=== PATIENT | female | born 2005 | race Caucasian/White ===

== ENCOUNTER 2025-02-17 18:40 | Emergency (ER) | payer BC, SELFPAY ==
--- OUTSIDE RECORDS SUMMARY | 2025-01-31 23:59 | XMS_ITS | Continuity of Care Document ---
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) - 01/31/25 Discharge Disposition: Home/Self Care Attending Physician: Nanda Nguyễn PA-C Admitting Physician: Nanda Nguyễn PA-C Encounter Type: Telemedicine Allergies, Adverse Reactions, Alerts No Known Medication Allergies Immunizations Given and Recorded Vaccine Date Status Refusal Reason .diphtheria-pertussis,acel-tetanus adult 11/21/22 Given COVID-19 Vaccine - BioNTech/Pfizer 01/26/21 Given COVID-19 Vaccine - BioNTech/Pfizer 01/05/21 Given .influenza vaccine, inactive, quadvlnt 01/06/14 Gi beverley .influenza virus vaccine, live, trivalnt 11/20/10 Given .poliovirus vaccine, inactivated 11/20/10 Given .poliovirus vaccine, inactivated 02/20/06 Given .poliovirus vaccine, inactivated 05 Given .poliovirus vaccine, inactivated 05 Given .utpuahx-homcb-hxvhdcu virus vaccine 11/20/10 Give n .hahulpb-vdewk-khsdmto virus vaccine 05/14/06 Give n .varicella virus vaccine 11/20/10 Given .varicella virus vaccine 05/14/06 Given .diphtheria-pertussis, acel-tetanus ped 11/20/10 G iven .diphtheria-pertussis, acel-tetanus ped 05 G iven .diphtheria-pertussis, acel-tetanus ped 05 G iven .diphtheria-pertussis, acel-tetanus ped 05 G iven sqwgxqagft-cgfruzf-bkczojmtf,acel-tetan 11/18/06 G iven .pneumococcal 7-valent vaccine 11/18/06 Given .pneumococcal 7-valent vaccine 05 Given .pneumococcal 7-valent vaccine 05 Given .pneumococcal 7-valent vaccine 05 Given .haemophilus B-hepatitis B vaccine 05 Given .haemophilus B-hepatitis B vaccine 05 Given Medications busPIRone 5 mg oral tablet 0 Refill(s), Acute = falls off med list w/stop date Start Date: 01/31/25 Status: Ordered Repeat number: 1 CeleBREX 200 mg oral capsule 200 mg = 1 CAP PO BID, Take BID for 7-14 days post tonsillectomy, # 60 CAP, 0 Refill(s), Maintenance = stays on med list, Pharmacy: [facility] Start Date: 01/31/25 Status: Ordered Quantity: 60.0 Unit: CAP Repeat number: 1 tranexamic acid 650 mg oral tablet See Instructions, 2 TABLET PO TID as needed - Please take for 14 days following your wisdom teeth extraction, # 50 EACH, 1 Refill(s), Maintenance = stays on med list, Pharmacy: [facility] Start Date: 01/31/25 Status: Ordered Quantity: 50.0 Unit: EACH Repeat number: 2 Problem List Condition Confirmation Course Effective Dates Status Health Status Informant Acne Confirmed Active Dysfibrinogenemia Confirmed Active Dysmenorrhea Confirmed Active 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 (01/31/25 9:10 AM) Concerns about Pain No (01/31/25 9:10 AM) Height Method Estimated (01/31/25 9:10 AM) Weight 63.0 kg (01/31/25 9:10 AM) Social History Social History Type Response Sex Female Sex Representation Female (finding) Patient Care team information Personnel Name: Victoria Amado Address: [address] [address] Telecom: Insurance Providers Guarantor name: POLO Health Plan Information #: 1 Payer: [facility] Non [place] - B03 Member Number: [id number] Policy Number: POLO Group Number: [id number] Payer Identifier: POLO Health Plan Information #: 2 Payer: [employer] Non [place] - B03 Member Number: [id number] Policy Number: POLO Group Number: [id number] Payer Identifier: POLO
--- OUTSIDE RECORDS SUMMARY | 2025-02-15 08:45 | XMS_ITS ---
Author Organization [facility] Address [address] [place] [address] Care Team Providers Care Director Of Labor Relations Name Role Phone None, None Primary Care Provider LAW Rosario [phone] REASON FOR VISIT RSC/TONSILLECTOMY Medications Medication SIG (Take, Route, Frequency, Duration) Notes Start Date End Date Status oxyCODONE HCl 5 MG Tablet 1 tablet as ne eded for pain Orally every 4 hrs; Duration: 7 days 02/15/2025 02/22/2025 Active Spironolactone Activ e Encounters Encounter Location Date Provider Diagnosis [address] [place], [place] [id number] 02/15/2025 LAW BROOKE Plan Of Treatment Medication Medication Name Sig Start Date Stop Date Notes oxyCODONE HCl 5 MG Tablet 1 tablet as ne eded for pain Orally every 4 hrs; Duration: 7 days 02/15/2025 02/22/2025 Progress Notes * Keri HARRISON MDOB: 6 (19 yo F)Acc No.[id number]:02/15/2025 Patient: Viktor espinal Keri De La Fuente Provider: Joby Brooke :2005 A ge:19 Y S ex:Female Date:02/15/2025 Address: [facility] Subjective: * Chief Complaints: * 1 . RSC/TONSILLECTOMY. * Surgical History: * Hospitalization/Major Diagno stic Procedure: * Medications: T aking Spironolactone Plan: * Treatment: * PACKER Sign off status: Completed true * Provider: Joby Brooke Date: 04/17/2024 Generated for Joselyn holcomb/Adrien/Mark on: 04/19/2024 07:26 PM HAND PACKER
[2025-02-17 18:44] VITALS: BP 110/73; PULSE 91; RESP 18; TEMP 37.3; O2SAT 98
--- NOTE | 2025-02-17 18:57 | ED.GENADULT ---
HPI - General Adult General Time Seen by Provider: 18:58 Date Seen: 02/17/25 Chief complaint: Ear/Nose/Throat Problem Stated complaint: Tonsillectomy Thursday; cough, sore throat Time Seen by Provider: 02/17/25 18:48 Source: patient Mode of arrival: ambulatory Limitations: no limitations History of Present Illness HPI narrative: 19-year-old female who presents today with cough and throat pain after tonsillectomy 2 days ago. Patient notes she has had a runny nose and cough, postnasal drainage, coughing source of her worse. She has not been able to take her medications including oxycodone and TXA due to pain, also is not eating or drinking well. No bleeding. Related Data Home Medications ?Medication ?Instructions ?Recorded ?Confirmed buspirone 5 mg tablet 5 mg PO BID PRN 02/17/25 02/17/25 celecoxib .ROUTE BID 02/17/25 spironolactone 100 mg tablet 200 mg PO DAILY 02/17/25 02/17/25 (Aldactone) tranexamic acid 650 mg tablet 1,300 mg PO TID 02/17/25 02/17/25 Previous Rx's ?Medication ?Instructions ?Recorded oxycodone 5 mg/5 mL oral solution 5 mg (5 mL) PO Q6H PRN pain #50 mL 02/17/25 Allergies Allergy/AdvReac Type Severity Reaction Status Date / Time NSAIDS (Non-Steroidal Allergy Severe Verified 02/17/25 18:56 Anti-Inflamma Exam Narrative: Exam Narrative: General: Well-developed and well-nourished, no acute distress Head: Atraumatic and normocephalic Eyes: Pupils are equal reactive, extraocular motions intact, conjunctiva clear ENT: Usual postoperative tonsillectomy changes, uvula is quite edematous and touching the tongue Neck: No midline cervical tenderness, full spontaneous range of motion the neck, trachea midline, no adenopathy Heart: Regular rate and rhythm no murmurs or thrills Lungs: Clear to auscultation bilaterally without wheezes or crackles Abdomen: Soft, nontender, nondistended with active bowel sounds Musculoskeletal: No tenderness, deformity, or edema Neurologic: Awake, alert, and oriented x3, no gross focal neurologic deficits, cranial nerves intact as tested Psych: Mood and affect are appropriate Skin: No rashes Const: Vital Signs, click to edit/add: Vital Signs - 24 hr 02/17/25 18:44 Temperature 99.1 F Pulse Rate [Right Pulse Oximeter] 91 Respiratory Rate 18 Blood Pressure [Ri ght Upper Arm] 110/73 Pulse Oximetry 98 Oxygen Delivery Me thod Room Air Course Course ED Course: Additional records reviewed: Hematology visit from January 31 which was follow-up for hypofibrinogenemia Additional history from: [facility] Care impacted by: bleeding disorder/hypofirbinogenemia Testing considered but not performed: See ED course Patient presents with nasal congestion, cough, throat pain after tonsillectomy 2 days ago. No shortness of breath, mild chest pain when she coughs. Patient is on TXA postoperatively for 2 weeks but has not been able to take this, also not able to drink much or take her pain pills. On exam here vital is stable, expected postoperative changes of the posterior oropharynx but the uvula is quite edematous, not erythematous and no exudate. IV will be placed, fluids and TXA given, epinephrine nebulizer given and dexamethasone. Reevaluation(s) Time of Reevaluation #1: 20:17 Reevaluation #1: Patient recheck, still having quite a bit of pain, generalized symptoms are not much improved. Additional Dilaudid is given, posterior pharynx reexamined in no change. Patient is still able to swallow secretions. Time of Reevaluation #2: 21:57 Reevaluation #2: Patient recheck, she is feeling much better. Plan discharge, additional dose pain medication will be given prior. Vital Signs Vital signs: Initial Vital Signs Temperature 99.1 F 02/17/25 18:44 Temperature Source Temporal Artery Scan 02/17/25 18:44 Pulse Rate 91 02/17/25 18:44 Pulse Rhythm Regular 02/17/25 18:44 Pulse Strength 3+ Normal 02/17/25 18:44 Respiratory Rate 18 02/17/25 18:44 Blood Pressure 110/73 02/17/25 18:44 Blood Pressure Mean 85 02/17/25 18:44 Blood Pressure Position Sitting 02/17/25 18:44 Pulse Oximetry 98 02/17/25 18:44 Oxygen Delivery Method Room Air 02/17/25 18:44 Vital Signs Temperature 99.1 F 02/17/25 18:44 Pulse Rate 91 02/17/25 18:44 Respiratory Rate 18 02/17/25 18:44 Blood Pressure 110/73 02/17/25 18:44 Pulse Oximetry 98 02/17/25 18:44 Oxygen Delivery Method Room Air 02/17/25 18:44 Temperature 99.1 F 02/17/25 18:44 Pulse Rate 91 02/17/25 18:44 Respiratory Rate 18 02/17/25 18:44 Blood Pressure 110/73 02/17/25 18:44 Pulse Oximetry 98 02/17/25 18:44 Oxygen Delivery Method Room Air 02/17/25 18:44 Medications Administered Medications: Generic Name Dose Route Start Last Admin Trade Name Freq PRN Reason Stop Dose Admin Dexamethasone 10 mg 02/17/25 19:19 02/17/25 19:48 Dexamethasone 10 Mg/Ml Pf IVP 02/17/25 19:20 10 mg ONCE ONE Administration Epinephrine 0.5 ml 02/17/25 19:19 02/17/25 19:27 Racepinephrine Hcl 0.5 Ml Vial.Neb NEB 02/17/25 19:20 0.5 ml ONCE ONE Administration Hydromorphone HCl 0.5 mg 02/17/25 19:19 02/17/25 19:42 Hydromorphone 0.5 Mg/0.5 Ml Inj IVP 02/17/25 19:20 0.5 mg ONCE ONE Administration Hydromorphone HCl 0.5 mg 02/17/25 20:17 02/17/25 20:26 Hydromorphone 0.5 Mg/0.5 Ml Inj IVP 02/17/25 20:18 0.5 mg ONCE ONE Administration Sodium Chloride 1,000 mls @ 1,000 mls/hr 02/17/25 19:30 02/17/25 21:25 0.9 % Sodium Chloride 1000 Ml IV 02/17/25 20:29 Infused .Q1H SHIRA Infusion Tranexamic Acid 1,000 mg/ 110 mls @ 440 mls/hr 02/17/25 19:19 02/17/25 20:23 Sodium Chloride IVPB 02/17/25 19:20 Infused ONCE ONE Infusion Ondansetron HCl 4 mg 02/17/25 19:19 02/17/25 19:45 Ondansetron 2 Mg/Ml Inj IVP 02/17/25 19:20 4 mg ONCE ONE Administration Oxycodone HCl 5 mg 02/17/25 21:57 02/17/25 22:14 Oxycodone 1 Mg/Ml Oral Soln PO 02/17/25 21:58 5 mg ONCE ONE Administration Discharge Plan Discharge Clinical Impression: Post-operative pain, Hypofibrinogenemia Patient Disposition: Home w/ Parent or Adult Condition: Stable Instructions: Opioid Safety (ED), Pain Management After Surgery (DC) Activity Level: Activity as Tolerated Discharge Diet: Full Liquid Prescriptions: New oxycodone 5 mg/5 mL solution 5 mg PO Q6H PRN (Reason: pain) Qty: 50 0RF No Action spironolactone [Aldactone] 100 mg tablet 200 mg PO DAILY buspirone 5 mg tablet 5 mg PO BID PRN tranexamic acid 650 mg tablet 1,300 mg PO TID celecoxib .ROUTE BID Stand Alone Forms: [facility]
--- OUTSIDE RECORDS SUMMARY | 2025-02-17 19:26 | XMS_ITS | Patient Health Record ---
Author Organization [facility] Address [address] [place] [address] Care Team Providers Care Director Software Development Name Role Phone None, None Primary Care Provider LAW Rosario Unavailable [phone] Allergies Allergen (clinical drug ingredient) Drug/Non Drug Allergy documented on EMR Reaction Allergy Type Onset Date Status ibuprofen Ibuprofen Unknown Drug Allergy Active Reason For Referral No Information Medications Medication SIG (Take, Route, Frequency, Duration) Notes Start Date End Date Status oxyCODONE HCl 5 MG Tablet 1 tablet as ne eded for pain Orally every 4 hrs; Duration: 7 days 02/15/2025 02/22/2025 Active Spironolactone Activ e Social History Tobacco Use: Social History Observation Description Date Details (start date - stop date) Never Smoker NA - NA Social History Alcohol Use: Social Info Question Answer Notes Recreational drugs Recreational Drug Use: No Drug/Alcohol: Social Info Question Answer Notes AUDIT-C (Standard) Did you have a drink containing alcohol in the past year? No Points 0 Interpretation Negative Tobacco Use: Social Info Question Answer Notes Tobacco Control (Standard) Tobacco use: Nonsmoker Problems Problem Type SNOMED Code ICD Code Onset Dates Problem Status W/U Status Risk Notes Problem Tonsil stone (9126425) Tonsil stone (J35.8) Active confirmed Vital Signs Height-cm 167.64 cm 02/19/2024 Weight-kg 66.22 kg 02/19/2024 BMI Percentile 71.06 % 02/19/2024 Height 66 in 02/19/2024 Weight 146 lbs 02/19/2024 BMI 23.56 kg/m2 02/19/2024 Procedures Procedure Date Ordered Date Performed Result Body Sit e Surgery - Tonsils 02/19/2024 02/15/2025 02/15/25 Encounters Encounter Location Date Provider Diagnosis [facility] [place] [address] [facility] [address] [place] [address] 02/19/2024 LAWRANI BROOKE Recurrent tonsillitis J03.91 and Tonsil stone J35.8 [facility] [address] [address] [place], [place] [id number] 02/15/2025 LAW JAYLYNARAMIS [facility] [address] [place] [address] 11/15/2024 LAWRANI BROOKE Assessments Encounter Date Diagnosis (ICD Code) Assessment Notes Treatment Notes Treatment Clinical Notes Section Notes 02/19/2024 Recurrent tonsillitis (ICD-10 - J03.91) This is an 18-year-old female with recurrent tonsillitis and occasional tonsil stones being evaluated for tonsillectomy. We reviewed the indications for tonsillectomy and she is likely to have had 3 tonsil infections per year for the past 3 years. She also has persistent and irritating tonsil stones bilaterally. The postoperative course and general painful recovery was reviewed with the patient and her father included risks of bleeding, pain, irritation, tonsil regrowth, and general difficult recovery. Additionally, the patient explains that she has a history of clotting factor deficiency and would require preoperative treatment by her cutlet maker pork. We discussed elevated risk of bleeding as a result. She is willing to proceed and we will schedule accordingly. 02/19/2024 Tonsil stone (ICD-10 - J35.8) This is an 18-year-old female with recurrent tonsillitis and occasional tonsil stones being evaluated for tonsillectomy. We reviewed the indications for tonsillectomy and she is likely to have had 3 tonsil infections per year for the past 3 years. She also has persistent and irritating tonsil stones bilaterally. The postoperative course and general painful recovery was reviewed with the patient and her father included risks of bleeding, pain, irritation, tonsil regrowth, and general difficult recovery. Additionally, the patient explains that she has a history of clotting factor deficiency and would require preoperative treatment by her cutlet maker pork. We discussed elevated risk of bleeding as a result. She is willing to proceed and we will schedule accordingly. Plan Of Treatment Pending Test Test Name Order Date Surgery - Tonsils 02/19/2024 Insurance Providers Payer Name Payer Address Payer Phone Subscriber Number Group Number Insured Name Patient Relationship to Insured Coverage Start Date Coverage End Date [facility] [address] [address] [place] [address] [id number] Keri Ramirez Self - patient is the insured Medical (General) History Medical History History ICD Code easy bleeding or bruising problems factor 1 and 7 blood disorders Surgical History Surgery Date(Month/Year) craniosynostosis 2007 Bilateral Tonsillectomy [facility] 02/15/2025 Hospitalization History Reason Date(Month/Year) Same as Surgical history
--- OUTSIDE RECORDS SUMMARY | 2025-02-17 19:26 | XMS_ITS | Encounter Summary ---
Author Organization [place] Address [address] [place] [address] Care Team Providers Care School Age Teacher Name Role Phone Jean Marie Ray MD Primary Care Provider [phone] Kathi Rodriguez APRN RESEARCH AND INSIGHTS EXECUTIVE Unavailable [phone] Kathi Rodriguez APRN RESEARCH AND INSIGHTS EXECUTIVE Unavailable [phone] No Ref-Primary, Physician Primary Care Provider Victoria Restrepo TAG MAKER Unavailable Unavailable [facility] Unavail able [facility] Unavailabl e [facility] Unavail able [facility] Unavailabl e Encounter Details Date Type Department Care Team (Late st Contact Info) Description 10/09/2021 My[facility] Medical Advice [address] [address] Gogo Ramos CMA Social History Tobacco Use Types Packs/Day Years Used Date Smoking Tobacco: Never Smokeless Tobacco: Never Alcohol Use Standard Drinks/Week Comments No 0 (1 standard drink = 0.6 oz pur e alcohol) PHQ-2 Answer Date Recorded PHQ-2 Score 0 03/01/2020 Comments Unknown Sex and Gender Information Value Date Recorded Sex Assigned at Not on file Legal Sex Female 9:10 PM CDT Gender Identity Female 02/29/2020 9:37 PM CUT OFF SAWYER LOG Sexual Orientation Straight 03/12/2021 12 :10 PM CUT OFF SAWYER LOG COVID-19 Exposure Response Date Recorded In the last 10 days, have yo u been in contact with someone who was confirmed or suspected to have Coronavirus/COVID-19? No / Unsure 09/16/2021 12:36 PM CDT documented as of this encounter Plan of Treatment Not on file documented as of this encounter Visit Diagnoses Not on filedocumented in this encounter Additional Health Concerns Infection Onset Date Last Indicated Resolved Time Rule Out COVID-19 11/18/2022 11/18/2022 11/19/2022 10:57 AM CDT documented as of this encounter Care Teams School Age Teacher Relationship Specialty Start Date End Date Jean Marie Ray MD [address] [facility] [address] [place] [address] PCP - General Pediatrics 09/07/13 10/17/22 No Ref-Primary, Physician PCP - General 10/18/22 Kathi Rodriguez APRN RESEARCH AND INSIGHTS EXECUTIVE [address] [place] [phone] Assigned PCP 02/10/20 03/14/22 Kathi Rodriguez APRN RESEARCH AND INSIGHTS EXECUTIVE [address] [place] [phone] Assigned PCP 05/24/22 11/28/22 Victoria Restrepo NP Assigned PCP 11/29/22 07/20/23 [facility] [address] [place] [address] Assigned PCP 07/21/23 03/20/24 [facility] [address] [place] [address] Assigned PCP 03/21/24 06/18/24 [facility] [address] [facility] [place] [address] Assigned PCP 06/19/24 12/19/24 [facility] [address] [place] [address] Assigned PCP 12/20/24 documented as of this encounter
--- OUTSIDE RECORDS SUMMARY | 2025-02-17 19:26 | XMS_ITS | Clinical Summary ---
Author Organization [address] [address] Care Team Providers Care Solid Waste Collection Worker Name Role Phone No Ref-Primary, Physician Primary Care Provider [facility] Allergies Active Allergy Reactions Criticality Noted Date Comments Ibuprofen 01/12/2023 Bad reaction - has a blood disorder Medications spironolactone (ALDACTONE) 100 MG tablet TAKE 1 TABLET BY MOUTH TWICE A DAY X 90 DAYS 2 Active levonorgestrel (MIRENA) 52 MG (20 mcg/day) IUD 1 each 2 Active VITAMIN D3 25 MCG tablet Take 1 tablet by mouth daily at 2 pm. 4 Active VITAMIN D3 25 MCG tablet Take 1 tablet by mouth daily at 2 pm. 4 Active sodium chloride (OCEAN) 0.65 % nasal sprayIndications:U pper respiratory tract infection, unspecified type [place] 2 sprays in nostril 2 times daily as needed for congestion 4 Active ofloxacin (OCUFLOX) 0.3 % ophthalmic solutionIndication s:Contact lens related conjunctivitis Place 1-2 drops into the right eye 4 times daily. 10 mL 5 Active erythromycin (ROMYCIN) 5 MG/GM ophthalmic ointmentIndication s:Contact lens related conjunctivitis Place 0.5 inches into the right eye at bedtime. 3.5 g 1 5 Active Active Problems Problem Noted Date Diagnosed Date Tonsil stone 08/10/2024 Chronic tonsillitis 01/16/2024 Acne 06/22/2022 Dysmenorrhea 06/22/2022 Presence of intrauterine contraceptive device Menorrhagia 06/22/2022 Immunizations Immunization Administration Dates Next Due COVID-19 MONOVALENT 12+ (Pfizer) 01/26/2021,100 11/2020 Comvax (HIB/HepB) 2005,2005 DTAP (<7y) 11/20/2010, 6,2005,06/16 HPV9 (Gardasil) 11/21/2022 Hepatitis A (Vaqta/Havrix)(P eds 12m-18y) 09/01/2007,11/18/2006 Hepatitis B, Peds (Engerix-B/Recombivax HB) 02/20/2006 Influenza (IIV3) PF 02/20/2007,02/20/2006 Influenza (prior to 2023) 02/12/2008 Influenza Intranasal Vaccine 11/20/2010 Influenza Vaccine >6 months,quad, PF 03/03/2022, 05/05/2013 Influenza Vaccine, 6+MO IM (QUADRIVALENT W/PRESERVATIVES) 01/06/2014 MMR (MMRII) 11/20/2010,05/14/2006 Meningococcal ACWY (Menquadf i ) 11/21/2022 Pneumococcal (PCV 7) 11/18/2006,10/15/19 06,2005,06/16 Poliovirus, inactivated (IPV) 11/20/2010 ,02/20/2006,2005,06/16 TDAP (Adacel,Boostrix) 11/21/2022 TRIHIBIT (DTAP/HIB, <7y) 11/18/2006 Varicella (Varivax) 11/20/2010,05/14/2006 Social History Tobacco Use Types Packs/Day Years Used Date Smoking Tobacco: Never Smokeless Tobacco: Never Alcohol Use Standard Drinks/Week Comments No 0 (1 standard drink = 0.6 oz pur e alcohol) PHQ-2 Answer Date Recorded PHQ-2 Score 0 11/21/2022 Hunger Vital Sign Answer Date Recorded Within the past 12 months, y ou worried that your food would run out before you got the money to buy more. Never true 11/22/19 23 Within the past 12 months, t he food you bought just didn't last and you didn't have money to get more. Never true 11/21/2022 PRAPARE - Transportation Answer Date Re corded In the past 12 months, has l ack of transportation kept you from medical appointments or from getting medications? No 11/21/2022 Lack of Transportation (Non-Medical) Not on file 11/21/2022 Housing Stability Vital Sign Answer Tobi e Recorded In the last 12 months, was t here a time when you were not able to pay the mortgage or rent on time? No 11/21/2022 Number of Places Lived in the Last Year Not on f ile 11/21/2022 In the last 12 months, was t here a time when you did not have a steady place to sleep or slept in a group home (including now)? No 11/21/2022 Adolescent Education Answer Date Record ed Getting School Help Needed Not on file 12/19 Comments No Sex and Gender Information Value Date Recorded Sex Assigned at Not on file Legal Sex Female 9:10 PM CDT Gender Identity Female 02/29/2020 9:37 PM [employer] Sexual Orientation Straight 03/12/2021 12 :10 PM [employer] Last Filed Vital Signs Vital Sign Reading Time Taken Comments Blood Pressure 118/72 08/10/2024 12:27 PM CDT Pulse 74 08/10/2024 12:27 PM CDT Temperature 36.8 C (98.2 F) 08/10/2024 12:27 PM CDT Respiratory Rate 14 08/10/2024 12:27 PM CDT Oxygen Saturation 99% 08/10/2024 12:27 PM CDT Inhaled Oxygen Concentration - - Weight 68.5 kg (151 lb) 08/10/2024 12:27 PM CDT Height 167.6 cm (5' 6) 08/10/2024 12:27 PM CDT Body Mass Index 24.37 08/10/2024 12:27 PM CDT Plan of Treatment Health Maintenance Due Date Last Done Comments ADVANCE CARE PLANNING 2005 ANNUAL REVIEW OF HM ORDERS 2005 HIV SCREENING 2020 MENINGITIS B VACCINE (1 of 2 - Standard) 2021 HPV VACCINE (2 - 3-dose series) 12/19/2022 11/21/2022 HEPATITIS C SCREENING 2023 YEARLY PREVENTIVE VISIT 11/22/2023 11/21/2022 CHLAMYDIA SCREENING 03/09/2024 03/09/2023, 3 PHQ-2 (once per calendar year) 2024 11/21/2022, 08/20/2022, 03/03/2022, Additional history exists COVID-19 VACCINE (3 - season) 2024 01/26/2021, 01/05/2021 INFLUENZA VACCINE (#1) 2024 , 01/06/2014, 05/05/2013, Additional history exists DTAP/TDAP/TD VACCINE (7 - Td or Tdap) 11/21/2032 11/21/2022, 11/20/2010, 11/18/2006, Additional history exists ZOSTER VACCINE (1 of 2) 2055 HEPATITIS B VACCINE Completed 02/20/2006, 2005, 2005 HIB VACCINE Completed 11/18/2006, 07/28, 2005 PNEUMOCOCCAL VACCINE: PEDIATRICS (0 to 5 YEARS) AND AT-RISK PATIENTS (6 to 49 YEARS) Aged Out 11/18/2006, 2005, 2005, Additional history exists No longer eligible based on patient's age to complete this topic IPV VACCINE Completed 11/20/2010, 01/29, 2005, Additional history exists VARICELLA VACCINE Completed 11/20/2010, 05/14/2006 MENINGITIS VACCINE Completed 11/21/2022 Procedures Procedure Name Priority Date/Time Associated Diagnosis Comments CHLAMYDIA TRACHOMATIS PCR Routine 03/09/2023 12:58 PM [employer] Chlamydia from Last 3 Months or Most Recently Relevant to Health Maintenance Results * Chlamydia trachomatis PCR (03/09/2023 12:58 PM [employer]) Chlamydia trachomatis Negative Negative 03/10/2023 11:42 AM [employer] [facility] Comment:A negative result by fur sewer mediated amplification does not preclude the presence of C. trachomatis infection because results are dependent on proper and adequate collection, absence of inhibitors and sufficient rRNA to be detected. Swab VAGINAL STRUCTURE / Unknown Non-blood Collection / Unknown 03/09/2023 12:58 PM [employer] 03/09/2023 12:58 PM [employer] Erasmo Yap PA-C LAB - MICRO GENERAL ORDERABL ES Final Result [facility] Inf. Diseases Diag. Lab [address] [place] [address], [facility] [phone] from Last 3 Months or Most Recently Relevant to Health Maintenance [place] Care Teams Solid Waste Collection Worker Relationship Specialty Start Date End Date No Ref-Primary, Physician PCP - General 10/18/22 Clinic - [facility] [[email or web address]] [address] [place] [address] Assigned PCP 12/20/24
--- OUTSIDE RECORDS SUMMARY | 2025-02-17 19:26 | XMS_ITS | Clinical Summary ---
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) Medications No known medications Active Problems Problem Noted Date Diagnosed Date Acne 06/22/2022 Dysmenorrhea 06/22/2022 Menorrhagia 06/22/2022 Presence of intrauterine contraceptive device Resolved Problems Problem Noted Date Diagnosed Date Resolved Date Menorrhagia 08/09/2022 11/10/2023 Family History Relation Name Status Comments Father Alive Mother Alive Social History Tobacco Use Types Packs/Day Years Used Date Smoking Tobacco: Never Passive Smoke Exposure: Never Tobacco Cessation:Counseling Given: Not Answered Alcohol Use Standard Drinks/Week Comments Never 0 (1 standard drink = 0.6 oz pur e alcohol) Social Connections Answer Date Recorded Do you often feel lonely or isolated from those around you? 0 10/30/2023 Financial Resource Strain Answer Date R ecorded Difficulty of Paying Living Expenses 3 11/10/2023 Difficulty of Paying Living Expenses Not on file 11/10/2023 Food Insecurity Answer Date Recorded Do you worry your food will run out before you are able to buy more? 1 10/30/2023 Transportation Needs Answer Date Record ed Does lack of transportation keep you from medica l appointments? 1 10/30/2023 Does lack of transportation keep you from work, meetings or getting things that you need? 1 10/30/2023 Housing Stability Answer Date Recorded What is your housing situation today? 1 10/30/2023 Utilities Answer Date Recorded Do you have trouble paying f or utilities (for example, heat, electricity, water, phone)? 1 10/30/2023 Comments No Sex and Gender Information Value Date Recorded Sex Assigned at Not on file Legal Sex Female 7:13 AM [employer] Gender Identity Not on file Sexual Orientation Not on file Obstetrics History Last Filed Vital Signs Vital Sign Reading Time Taken Comments Blood Pressure 108/60 11/10/2023 12:07 PM CDT Pulse 60 11/10/2023 12:07 PM CDT Temperature 36.7 C (98.1 F) 02/06/2023 7:26 PM [employer] HEL[employer] Respiratory Rate 12 02/06/2023 7:26 PM BOAT JOINER HELPER Oxygen Saturation 99% 02/06/2023 7:26 PM BOAT JOINER HELPER Inhaled Oxygen Concentration - - Weight 61.2 kg (135 lb) 02/06/2023 7:26 PM BOAT JOINER HELPER Height 167.6 cm (5' 6) 02/06/2023 7:26 PM [employer]AT [employer]ER HELPER Body Mass Index 21.79 02/06/2023 7:26 PM BOAT JOINER HELPER Body Mass Index Percentile 57.14% 02/06/2023 7:2 6 PM BOAT JOINER HELPER Growth Chart: CDC (Girls, 2- 20 Years) Plan of Treatment Health Maintenance Due Date Last Done Comments Well Child Check for age 3-20 03/11/2008 Tetanus booster 2016 Depression screening for age 12+ 2017 HIV for age 15-65 2020 HPV series for age 9-45 (1 - 3-dose series) 2020 Chlamydia for age 16-24 2021 BMI (ht and wt on same day) for age 18+ 2023 Hepatitis C screening for age 18-79 2023 Hepatitis B series for 19+ ( 1 of 3 - 19+ 3-dose series) 2024 Influenza Vaccine (#1) 2024 RSV vaccine for adults or pr egnancy (1 - 1-dose 75+ series) 2080 Meningococcal series for age 11-21 Aged Out No longer eligible based on patient's age to complete this topic Pneumococcal series for age 6-49 Aged Out No longer eligible based on patient's age to complete this topic Insurance [place] [id number] [facility] Advance Directives * Full Code (Latest Code Status on File) Date Activated Date Inactivated Comments 2005 7:51 PM 2005 2:38 PM Care Teams Edge Stainer Machine Relationship Specialty Start Date End Date [place] PCP - General 02/06/23
--- OUTSIDE RECORDS SUMMARY | 2025-02-17 19:26 | XMS_ITS | Encounter Summary ---
Author Organization [facility] Address [address] [place] [address]. [place] [address] Care Team Providers Care Meter Tester Name Role Phone Jean Marie Ray MD Primary Care Provider [phone] Kathi Rodriguez APRN [employer] Unavailable Kathi Rodriguez APRN [employer] Unavailable [phone] No Ref-Primary, Physician Primary Care Provider Victoria Restrepo NP Unavailable Unavailable [facility] Encounter Details Date Type Department Care Team (Late st Contact Info) Description 03/03/2022 MyC Medical Advice [facility] [address] [place] [phone] Nael Paz APRN [employer] [address] [place] [address] Social History Tobacco Use Types Packs/Day Years Used Date Smoking Tobacco: Never Smokeless Tobacco: Never Alcohol Use Standard Drinks/Week Comments No 0 (1 standard drink = 0.6 oz pur e alcohol) PHQ-2 Answer Date Recorded PHQ-2 Score 0 03/03/2022 Comments Unknown Sex and Gender Information Value Date Recorded Sex Assigned at Not on file Legal Sex Female 9:10 PM CDT Gender Identity Female 02/29/2020 9:37 PM [employer] Sexual Orientation Straight 03/12/2021 12 :10 PM [employer] COVID-19 Exposure Response Date Recorded In the last 10 days, have yo u been in contact with someone who was confirmed or suspected to have Coronavirus/COVID-19? No / Unsure 03/03/2022 8:36 AM [employer] documented as of this encounter Plan of Treatment Not on file documented as of this encounter Visit Diagnoses Not on filedocumented in this encounter Additional Health Concerns Infection Onset Date Last Indicated Resolved Time Rule Out COVID-19 11/18/2022 11/18/2022 11/19/2022 10:57 AM CDT documented as of this encounter Care Teams Meter Tester Relationship Specialty Start Date End Date Jean Marie Ray MD [address] [place], [place] [address] PCP - General Pediatrics 09/07/13 10/17/22 No Ref-Primary, Physician PCP - General 10/18/22 Kathi Rodriguez APRN [employer] [address] [place] [phone] Assigned PCP 02/10/20 03/14/22 Kathi Rodriguez APRN [employer] [address] [place] [address] Assigned PCP 05/24/22 11/28/22 Victoria Restrepo NP Assigned PCP 11/29/22 07/20/23 [facility] - [address] [id number] Assigned PCP 07/21/23 03/20/24 [facility] [address] [place] [address] Assigned PCP 03/21/24 06/18/24 [facility] [address] [place] [address] Assigned PCP 06/19/24 12/19/24 [facility] [address] [place] [address] Assigned PCP 12/20/24 documented as of this encounter
[2025-02-17] MEDS: RACEPINEPHRINE HCL 0.5 ML VIAL.NEB NEB (19:27)
[2025-02-17] MEDS: ONDANSETRON 2 MG/ML inj 4 MG IVP (19:45)
[2025-02-17] MEDS: DEXAMETHASONE 10 MG/ML PF IVP (19:48)
[2025-02-17] MEDS: TRANEXAMIC ACID 1,000 MG in 0.9 % SODIUM CHLORIDE 100 ml 100 ML 440 MG IVPB (20:05)
[2025-02-17] MEDS: OXYCODONE 1 MG/ML ORAL SOLN 5 MG PO (22:14)
[2025-02-17 22:30] VITALS: PULSE 87; O2SAT 96
== END 2025-02-17 22:44 | disposition home or self-care (01) ==
LOC: ED 19:24
PROVIDERS: Emergency Provider Family Medicine
DX: G89.18 Other acute postprocedural pain (principal); D68.8 Other specified coagulation defects
CPT/HCPCS: 94640; 96365; 96375; 99284; A9270; J1100; J1171; J2405; J7030